=== PATIENT | male | born 1950 | race Caucasian/White ===

== ENCOUNTER 2021-10-14 16:30 | Emergency (ER) | payer MEDICARE, SELFPAY ==
--- NOTE | ~2021-10-14 | XR_ITS ---
EXAMINATION: XR shoulder LT min 2V INDICATION: Left shoulder pain TECHNIQUE: Four views of the left shoulder are submitted. COMPARISON: None FINDINGS: Normal alignment. No fracture. There is mild osteoarthritis of the acromioclavicular and gl enohumeral joints. Soft tissues are unremarkable. IMPRESSION: 1. Osteoarthritis without acute osseous abnormality. Reviewed, dictated and finalized at location F. [employer] OFFICER
--- NOTE | ~2021-10-14 | XR_ITS ---
EXAMINATION: [id number] INDICATION: Left chest pain after fall TECHNIQUE: A frontal view of the chest and 3 views of the left ribs were obtained. COMPARISON: None. FINDINGS: There are acute fractures of the anterolateral left ninth and 10th ribs. The lungs are free of acute opacities. There is no pleural effusion or pneumothorax. An electronic device projects over the right hemithorax with an electronic lead coursing superiorly on the superior margin of the radio graph. IMPRESSION: 1. Acute fractures of the anterolateral left ninth and 10th ribs. Reviewed, dictated and finalized at location F. [employer] MAGISTRATE
--- NOTE | 2021-10-14 17:03 | ED.GENADULT ---
HPI - General Adult General Chief complaint: Extremity Injury, Upper Stated complaint: Lt side pain due to fall Time Seen by Provider: 10/14/21 17:03 Source: patient, RN notes reviewed and old records reviewed Mode of arrival: ambulatory Limitations: no limitations History of Present Illness HPI narrative: 71 year old male who presents to express care with complaints of injury to his left side after fall today when he stepped up to the curb today going to the movies this afternoon in [place], [place]. Patient states that he has discomfort to his left shoulder and also to his left anterior lateral rib area from the fall. Patient also has a small skin tear to his left elbow with band-aide in place, no drainage present. Patient reports that he did not hit his head when he fell and denies any lose of consciousness. Related Data Home Medications Medication Instructions Recorded Confirmed allopurinol 100 mg PO DAILY 10/14/21 10/14/21 baclofen 10 mg PO PRN PRN 10/14/21 10/14/21 blood sugar diagnostic [Accu-Chek 10/14/21 10/14/21 Guide test strips] blood sugar diagnostic [Accu-Chek 10/14/21 10/14/21 Guide test strips] brimonidine 1 drp LEFT EYE TID 10/14/21 10/14/21 diltiazem HCl 300 mg PO DAILY 10/14/21 10/14/21 fenofibrate nanocrystallized 145 mg PO DAILY 10/14/21 10/14/21 insulin syringe-needle U-100 [BD 10/14/21 10/14/21 Insulin Syringe Ultra-Fine] latanoprost 2 drp EACH EYE DAILY 10/14/21 10/14/21 omeprazole 40 mg PO DAILY 10/14/21 10/14/21 oxybutynin chloride 15 mg PO DAILY 10/14/21 10/14/21 tamsulosin 0.4 mg PO DAILY 10/14/21 10/14/21 timolol maleate 1 drp EACH EYE DAILY 10/14/21 10/14/21 torsemide 10 mg PO DAILY 10/14/21 10/14/21 valsartan 160 mg PO DAILY 10/14/21 10/14/21 Allergies Allergy/AdvReac Type Severity Reaction Status Date / Time No Known Allergies Allergy Verified 10/14/21 16:46 Review of Systems Review of Systems: CONSTITUTIONAL: Denies fever, chills, or sweats. EYES: Denies visual changes, redness, or discharge. ENT: Denies rhinorrhea, congestion, sore throat, or otalgia. CARDIOVASCULAR: Denies chest pain, palpitations, or edema. RESPIRATORY: Denies cough or dyspnea.positive pain to left anterior lateral chest GASTROINTESTINAL: Denies abdominal pain, nausea, vomiting, or diarrhea. GENITOURINARY: Denies dysuria or hematuria. SKIN: Denies rash or itching. MUSCULOSKELETAL: Chronic back pain , Positive left shoulder joint pain, or myalgia. NEUROLOGIC: Denies headache, numbness, or weakness. PSYCHIATRIC: Denies anxiety or depression. All systems reviewed & are unremarkable except as noted in HPI and below PMFSH Past Medical History Medical History (Updated 10/14/21 @ 18:22 by Diamond Figueroa NP) Diabetes Elevated uric acid in blood GERD (gastroesophageal reflux disease) Glaucoma Kidney stones Stage 3 chronic kidney disease Surgical History Surgical History (Updated 10/14/21 @ 18:23 by Diamond Figueroa NP) H/O eye surgery left eye had glaucoma valve History of Shakeel fundoplication History of prostate surgery History of total right knee replacement Hx of cholecystectomy S/P right rotator cuff repair Social History Social History (Updated 10/14/21 @ 18:24 by Diamond Figueroa NP) Smoking status: Former smoker Alcohol intake: current Alcohol use details: rare social Substance use: never Living arrangements: with family Gender identity (if verbalized by the patient): Male Comments At time of signature, agree with nursing past medical, surgical, social and family history. There is no relevant family history pertinent to the presenting complaint Exam Narrative: GENERAL: Well-appearing, well-nourished, and in no acute distress. HEAD: Normocephalic, atraumatic. EYES: PERRLA and EOMI. ENT: Nares clear, no rhinorrhea or epistaxis. Mucous membranes moist.TM's normal with good light reflex, throat pink with no lesions or exudates no tonsil swelling NECK: Supple. n
[2021-10-14 17:08] VITALS: BP 125/89; PULSE 72; RESP 18; TEMP 37.2; O2SAT 96
== END 2021-10-14 18:08 | disposition home or self-care (01) ==
PROVIDERS: Emergency Provider Registered Nurse; PCP Registered Nurse
DX: M25.512 Pain in left shoulder (principal); S22.42XA Multiple fractures of ribs, left side, initial encounter for closed fracture; W19.XXXA Unspecified fall, initial encounter; K21.9 Gastro-esophageal reflux disease without esophagitis; H40.9 Unspecified glaucoma; E11.22 Type 2 diabetes mellitus with diabetic chronic kidney disease; N18.30 Chronic kidney disease, stage 3 unspecified; Z96.651 Presence of right artificial knee joint
CPT/HCPCS: 71101; 73030; 99214; G0463

== ENCOUNTER 2021-11-12 07:44 | Outpatient (RCR) | payer MEDICARE, SELFPAY ==
--- NOTE | 2021-11-12 07:52 | PTOPEVAL ---
Thank you for referring Onel Desouza to [facility].? The patient is scheduled to be seen for therapy? ____x/week for ___ weeks. Please review, sign, date and return this plan of care JARRETT. I agree with and certify that the following plan of care is medically necessary. Referring Physician Date Admitting Provider: Attending Provider: KYLIE ABAD Referring Provider: *PT Outpatient Evaluation Start: 11/12/21 07:07 Freq: Status: Active Protocol: Document 11/12/21 07:05 [facility] (Rec: 11/12/21 07:51 [facility] [id number]) Therapy Assessment Status Assessment Status Assessment Status Evaluation Outpatient Past Medical History Neurological History Hx Neurological Disorders No Significant History Cardiovascular History Hx Hypercholesterolemia Yes Respiratory History Hx Bronchitis Yes Hx Sleep Apnea Yes: has 'inspire' implant Gastrointestinal History Hx Cholecystectomy Yes Hx Esophageal Disorders Yes: barretts esophagus, had jesus surgery Hx Gastroesophageal Reflux Disease Yes Hx Hernia Yes Genitourinary History Hx Benign Prostatic Hyperplasia Yes Hx Renal Disease Yes: stage 3 Musculoskeletal History Hx Arthritis Yes Hx Fractures Yes: broken ribs, r arm broken twice Hx Gout Yes Hx Joint Replacement Yes: right knee Hx Orthopedic Surgery Yes: r rot cuff Hx Other Musculoskeletal Disorders Yes: bilateral carpal tunnel Hematological History Hx Hematological Disorders No Significant History Endocrine History Hx Diabetes Yes HEENT History Hx Glaucoma Yes: left eye surgery Hx Sinus Problems Yes Integumentary History Hx Other Skin Disorders Yes: melanoma right upper arm Reproductive History Hx Reproductive Disorders No Significant History Psychosocial History Hx Psychiatric Disorders No Significant History Pain History History of Any Previous or Ongoing No Significant History Instance of Pain Anesthesia History Hx Anesthesia Reactions No Significant History Evaluation Information Problem Diagnosis L shoulder RTC injury Onset 10/14/21 Additional Evaluation Detail quick dash = Subjective Information patient reports he injured the Query Text:As Reported By Patient/ L shoulder and some ribs when Family he fell on the L shoulder. he reports he has had xrays only as of this date. he reports he has a spire in the chest and cant do and MRI. he
--- NOTE | 2021-12-17 07:59 | PTOPEVAL ---
Thank you for referring Onel Desouza to [facility].? The patient is scheduled to be seen for therapy? __1__x/week for 2 visits. Please review, sign, date and return this plan of care JARRETT. I agree with and certify that the following plan of care is medically necessary. Referring Physician Date Admitting Provider: Attending Provider: KYLIE ABAD Referring Provider: *PT Outpatient Evaluation Start: 11/12/21 07:07 Freq: Status: Active Protocol: Document 12/17/21 07:10 [facility] (Rec: 12/17/21 07:52 [id number]) Therapy Assessment Status Assessment Status Assessment Status Progress Outpatient Past Medical History Neurological History Hx Neurological Disorders No Significant History Cardiovascular History Hx Hypercholesterolemia Yes Respiratory History Hx Bronchitis Yes Hx Sleep Apnea Yes: has 'inspire' implant Gastrointestinal History Hx Cholecystectomy Yes Hx Esophageal Disorders Yes: barretts esophagus, had jesus surgery Hx Gastroesophageal Reflux Disease Yes Hx Hernia Yes Genitourinary History Hx Benign Prostatic Hyperplasia Yes Hx Renal Disease Yes: stage 3 Musculoskeletal History Hx Arthritis Yes Hx Fractures Yes: broken ribs, r arm broken twice Hx Gout Yes Hx Joint Replacement Yes: right knee Hx Orthopedic Surgery Yes: r rot cuff Hx Other Musculoskeletal Disorders Yes: bilateral carpal tunnel Hematological History Hx Hematological Disorders No Significant History Endocrine History Hx Diabetes Yes HEENT History Hx Glaucoma Yes: left eye surgery Hx Sinus Problems Yes Integumentary History Hx Other Skin Disorders Yes: melanoma right upper arm Reproductive History Hx Reproductive Disorders No Significant History Psychosocial History Hx Psychiatric Disorders No Significant History Pain History History of Any Previous or Ongoing No Significant History Instance of Pain Anesthesia History Hx Anesthesia Reactions No Significant History Evaluation Information Problem Diagnosis left shoulder RTC injury Onset 10/14/21 Subjective Information Pt. reports that his pain is Query Text:As Reported By Patient/ less intense. He states that Family he notices improved strength. He reports that he still has complication lifting small objects away from his body. He is pleased with his progress so far.
--- NOTE | 2021-12-26 08:10 | PTOPEVAL ---
Thank you for referring Onel Desouza to [facility].? The patient is scheduled to be seen for therapy? ____x/week for ___ weeks. Please review, sign, date and return this plan of care JARRETT. I agree with and certify that the following plan of care is medically necessary. Referring Physician Date Admitting Provider: Attending Provider: KYLIE ABAD Referring Provider: DennisePT Outpatient Evaluation Start: 11/12/21 07:07 Freq: Status: Active Protocol: Document 12/26/21 07:00 [facility] (Rec: 12/26/21 08:09 [facility] [id number]) Therapy Assessment Status Assessment Status Assessment Status Discharge Outpatient Past Medical History Neurological History Hx Neurological Disorders No Significant History Cardiovascular History Hx Hypercholesterolemia Yes Respiratory History Hx Bronchitis Yes Hx Sleep Apnea Yes: has 'inspire' implant Gastrointestinal History Hx Cholecystectomy Yes Hx Esophageal Disorders Yes: barretts esophagus, had jesus surgery Hx Gastroesophageal Reflux Disease Yes Hx Hernia Yes Genitourinary History Hx Benign Prostatic Hyperplasia Yes Hx Renal Disease Yes: stage 3 Musculoskeletal History Hx Arthritis Yes Hx Fractures Yes: broken ribs, r arm broken twice Hx Gout Yes Hx Joint Replacement Yes: right knee Hx Orthopedic Surgery Yes: r rot cuff Hx Other Musculoskeletal Disorders Yes: bilateral carpal tunnel Hematological History Hx Hematological Disorders No Significant History Endocrine History Hx Diabetes Yes HEENT History Hx Glaucoma Yes: left eye surgery Hx Sinus Problems Yes Integumentary History Hx Other Skin Disorders Yes: melanoma right upper arm Reproductive History Hx Reproductive Disorders No Significant History Psychosocial History Hx Psychiatric Disorders No Significant History Pain History History of Any Previous or Ongoing No Significant History Instance of Pain Anesthesia History Hx Anesthesia Reactions No Significant History Evaluation Information Problem Diagnosis left shoulder RTC injury Onset 10/14/21 Additional Evaluation Detail quick dash = 15% Subjective Information patient reports he is doing Query Text:As Reported By Patient/ well. he reports he is not Family resticted from activities at home any longer. he reports he still has pain when sleeping, but reports this is in bilateral shoulders. he
== END 2021-12-26 09:46 | disposition home or self-care (01) ==
LOC: CHSPT 07:44
DX: M25.512 Pain in left shoulder (principal)
CPT/HCPCS: 97110; 97161; 97530

== ENCOUNTER 2023-01-28 08:17 | Emergency (ER) | payer OTHER, SELFPAY ==
[2023-01-28 08:17] VITALS: BP 145/88; PULSE 80; RESP 18; TEMP 36.7; O2SAT 95
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
[2023-01-28] MEDS: ACETAMINOPHEN 500 MG TABLET 1000 MG PO (09:06)
[2023-01-28] MEDS: CYCLOBENZAPRINE HCL 10 MG TABLET PO (09:07)
[2023-01-28] MEDS: traMADol HCL (*CRX) 50 MG TABLET PO (09:07)
== END 2023-01-28 09:12 | disposition home or self-care (01) ==
PROVIDERS: Emergency Provider Emergency Medicine
DX: M54.2 Cervicalgia (principal); M25.511 Pain in right shoulder; E11.22 Type 2 diabetes mellitus with diabetic chronic kidney disease; N18.4 Chronic kidney disease, stage 4 (severe); Z79.4 Long term (current) use of insulin; Z87.891 Personal history of nicotine dependence; V49.40XA Driver injured in collision with unspecified motor vehicles in traffic accident, initial encounter
CPT/HCPCS: 99283; A9270

== ENCOUNTER 2023-02-09 10:36 | Outpatient (RCR) | payer MEDICARE, SELFPAY ==
--- NOTE | 2023-02-09 12:01 | PTOPEVAL1 ---
Assessment and note entered by JT File, PT Evaluation Information Assessment Status Evaluation Diagnosis L shoulder pain Onset 02/02/23 Subjective Information patient reports an injury to the R shoulder when lifting a trash bag and trying to flip it up and over into the trash can. he describes a motion of flexion and er of the forearm and shoulder. he reports any similar motion now is painful. 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 he reports he also has pain lifting up overhead. he reports twisting motions are worse then just lifting. he reports he has had an xray. her eports the MD thinks he may have had a slight tear. he reports he would like to get back to more easily using the arm for lifting, carrying, cooking, and reaching. Reported Pain Level Pain Score 0: Self Report Assessment PT Clinical Summary mr. peraza is a 73 yo man who presents to skilled PT services for evaluation and treatment of R shoulder pain. he presents with signs and symptoms of R RTC arthropathy. he displays shoulder weakness, decreased rom, and pain. he is also limited in functional movement and ability to complete lifting, carrying, and self care activities. he would benefit from continued skilled PT to address his objective/functional deficits and progress towards a return to his prior level funcitonal activity performance/ quality of life. Plan of Care Interventions Electrical Stimulation,Hot Pack/Cold Pack,Manual Therapy,Neuro Re-education,Patient/Caregiver Educati,Therapeutic Activities,Therapeutic Exercise PT Services Indicated Yes Treatment Frequency and 2x weekly for 12 visits Duration These treatments will address the objective and functional deficits as defined above. The patient will be advanced safely and appropriately in order for the patient to progress towards his/her prior level of function. Additional exercises will be introduced and as well as a comprehensive home exercise program upon discharge, if needed, ?to ensure carryover of functional gains achieved in the clinic. This treatment plan has been reviewed and agreement upon by the patient.
--- NOTE | 2023-02-09 12:02 | OPREHPOC ---
Outpatient Therapy Plan of Care This is a Multidisciplinary Plan of Care that may contain components documented by all disciplines (PT, OT, and ST.) PT Problem 1 PT Problem #1 Knowledge Deficit PT Goal 1 Goal 1. independent and compliant with HEP to improve tolerance for continued skilled PT and exercises. Target Visit 6 PT Problem 2 PT Problem #2 Pain PT Goal 1 Goal 1. decrease pain at worst to 4/10 in the R shoulder to improve quality of life and functional activity performance. Target Visit 12 PT Problem 3 PT Problem #3 Impaired Range of Motion PT Goal 1 Goal 1. arom R shoulder flexion to 135 degrees or better 2. arom R shoulder IR to 60 degrees or better Target Visit 12 PT Problem 4 PT Problem #4 Impaired Strength PT Goal 1 Goal 1. improve R shoulder strength to 4/5 or better overall to improve functional lifting and carrying performance Target Visit 12 PT Problem 5 PT Problem #5 Impaired Functional Mobil PT Goal 1 Goal 1. quick dash to display less than 30% functional deficits 2. patient to lift and carry 10lb weight in R hand for 200ft 3. patient to return to cooking, cleaning, and self care activities without increased pain for 2 hours. Target Visit 12
--- NOTE | 2023-03-16 09:53 | OPREHPOC ---
Outpatient Therapy Plan of Care This is a Multidisciplinary Plan of Care that may contain components documented by all disciplines (PT, OT, and ST.) PT Problem 1 PT Problem #1 Knowledge Deficit PT Goal 1 Goal 1. independent and compliant with HEP to improve tolerance for continued skilled PT and exercises. Target Visit 6 Progress Met PT Problem 2 PT Problem #2 Pain PT Goal 1 Goal 1. decrease pain at worst to 4/10 in the R shoulder to improve quality of life and functional activity performance. Target Visit 12 Comment continue PT Problem 3 PT Problem #3 Impaired Range of Motion PT Goal 1 Goal 1. arom R shoulder flexion to 135 degrees or better 2. arom R shoulder IR to 60 degrees or better Target Visit 12 Comment continue PT Problem 4 PT Problem #4 Impaired Strength PT Goal 1 Goal 1. improve R shoulder strength to 4/5 or better overall to improve functional lifting and carrying performance Target Visit 12 Comment continue PT Problem 5 PT Problem #5 Impaired Functional Mobil PT Goal 1 Goal 1. quick dash to display less than 30% functional deficits 2. patient to lift and carry 10lb weight in R hand for 200ft 3. patient to return to cooking, cleaning, and self care activities without increased pain for 2 hours. Target Visit 12 Comment continue
--- NOTE | 2023-03-16 09:53 | PTOPPROGNS ---
Assessment and note entered by Katelynn Bowen DPT Evaluation Information Assessment Status Progress Diagnosis L shoulder pain Onset 02/02/23 Subjective Information Patient reports that day after PT he can tell that pain is decreased. He reports improvement in activities that rotate the arm but reports continued difficulty with lifting over head. Assessment PT Clinical Summary Patient has been seen for 10 visits of skilled PT. Patient is progressing towards goals at this time but continues to demonstrate strength and ROM deficits of the R shoulder. Patient reports improved ability to rotate R UE with cooking and cleaning tasks but has difficulty with lifting. Patient would benefit from continued skilled PT to address remaining impairments and return to PLOF. Plan of Care Interventions Electrical Stimulation,Hot Pack/Cold Pack,Manual Therapy,Neuro Re-education,Patient/Caregiver Educati,Therapeutic Activities,Therapeutic Exercise PT Services Indicated Yes Treatment Frequency and continue with remaining 2 visits Duration These treatments will address the objective and functional deficits as defined above. The patient will be advanced safely and appropriately in order for the patient to progress towards his/her prior level of function. Additional exercises will be introduced and as well as a comprehensive home exercise program upon discharge, if needed, ?to ensure carryover of functional gains achieved in the clinic. This treatment plan has been reviewed and agreement upon by the patient.
--- NOTE | 2023-03-25 13:24 | PTOPREEVAL ---
Assessment and note entered by JT File, PT Evaluation Information Assessment Status Re-evaluation Diagnosis R shoulder pain Onset 02/02/23 Subjective Information Patient reports having no pain present at the beginning of today's session. He notes having little pain in the R shoulder since receiving a shot in it last week, prior to this his pain was reaching 6/10 at the worst. He states pain typically occurs while he is trying to sleep and that he has difficulty sidelying on shoulder. Patient notes he had difficulty the other day while stirring a pot during cooking. Patient notes he is visiting the spinal surgeon tomorrow to assess his neck pain. Reported Pain Level Pain Score 0: Self Report Assessment PT Clinical Summary Mr. Desouza has attended 12 sessions of skilled physical therapy to address R shoulder pain, making good progress towards goals. Patient demonstrated improved shoulder flexion AROM and PROM as well as R UE strength. Patient reports improved pain levels following steroid shot last week, however still has difficulty with activities like lifting items throughout home, cooking, and sleeping. He continues to show limitations in overall UE strength and ROM. Patient would benefit from continued skilled PT to address remaining impairments and return to PLOF. Plan of Care Interventions Manual Therapy,Neuro Re-education,Patient/ Caregiver Educati,Therapeutic Activities, Therapeutic Exercise PT Services Indicated Yes Treatment Frequency and continue 2x/week for additional 6 visits Duration These treatments will address the objective and functional deficits as defined above. The patient will be advanced safely and appropriately in order for the patient to progress towards his/her prior level of function. Additional exercises will be introduced and as well as a comprehensive home exercise program upon discharge, if needed, ?to ensure carryover of functional gains achieved in the clinic. This treatment plan has been reviewed and agreement upon by the patient.
--- NOTE | 2023-03-25 13:33 | OPREHPOC ---
Outpatient Therapy Plan of Care This is a Multidisciplinary Plan of Care that may contain components documented by all disciplines (PT, OT, and ST.) PT Problem 1 PT Problem #1 Knowledge Deficit PT Goal 1 Goal 1. independent and compliant with HEP to improve tolerance for continued skilled PT and exercises. Target Visit 6 Progress Met PT Problem 2 PT Problem #2 Pain PT Goal 1 Goal 1. decrease pain at worst to 4/10 in the R shoulder to improve quality of life and functional activity performance. Target Visit 12 Progress Partially Met Comment pain 6/10 at worst, continue goal PT Problem 3 PT Problem #3 Impaired Range of Motion PT Goal 1 Goal 1. arom R shoulder flexion to 135 degrees or better 2. arom R shoulder IR to 60 degrees or better Target Visit 12 Progress Partially Met Comment shoulder flexion ROM goal met, continue shoulder IR goal PT Problem 4 PT Problem #4 Impaired Strength PT Goal 1 Goal 1. improve R shoulder strength to 4/5 or better overall to improve functional lifting and carrying performance Target Visit 12 Progress Partially Met Comment continue PT Problem 5 PT Problem #5 Impaired Functional Mobil PT Goal 1 Goal 1. quick dash to display less than 30% functional deficits 2. patient to lift and carry 10lb weight in R hand for 200ft 3. patient to return to cooking, cleaning, and self care activities without increased pain for 2 hours. Target Visit 12 Progress Partially Met Comment goal 1 met, continue addressing others
--- NOTE | 2023-04-16 10:36 | OPREHPOC ---
Outpatient Therapy Plan of Care This is a Multidisciplinary Plan of Care that may contain components documented by all disciplines (PT, OT, and ST.) PT Problem 1 PT Problem #1 Knowledge Deficit PT Goal 1 Goal 1. independent and compliant with HEP to improve tolerance for continued skilled PT and exercises. Target Visit 6 Progress Met PT Problem 2 PT Problem #2 Pain PT Goal 1 Goal 1. decrease pain at worst to 4/10 in the R shoulder to improve quality of life and functional activity performance. Target Visit 12 Progress Met Comment pain 6/10 at worst, continue goal PT Problem 3 PT Problem #3 Impaired Range of Motion PT Goal 1 Goal 1. arom R shoulder flexion to 135 degrees or better 2. arom R shoulder IR to 60 degrees or better Target Visit 12 Progress Partially Met Comment shoulder flexion ROM goal met PT Problem 4 PT Problem #4 Impaired Strength PT Goal 1 Goal 1. improve R shoulder strength to 4/5 or better overall to improve functional lifting and carrying performance Target Visit 12 Progress Partially Met Comment goal met for all motions besides R shoulder ER PT Problem 5 PT Problem #5 Impaired Functional Mobil PT Goal 1 Goal 1. quick dash to display less than 30% functional deficits 2. patient to lift and carry 10lb weight in R hand for 200ft 3. patient to return to cooking, cleaning, and self care activities without increased pain for 2 hours. Target Visit 12 Progress Met Comment goal 1 met, continue addressing others
--- NOTE | 2023-04-16 10:36 | PTOPDC ---
Assessment and note entered by JT File, PT Evaluation Information Assessment Status Re-evaluation Diagnosis R shoulder pain Onset 02/02/23 Subjective Information Patient reports no pain in the R shoulder at the beginning of today's session. He does have pain in the lower back this morning, noting he slept on it wrong. He reports he is able to do most things with his arm, however he feels some pain with lifting weights. Patient notes improvements in range of motion and strength of the R shoulder since initiating PT. He states he no longer has issues sleeping with the shoulder. He feels comfortable continuing HEP independently. Reported Pain Level Pain Score 0,8: Self Report Assessment PT Clinical Summary Mr. Desouza has attended 18 sessions of skilled PT to address R shoulder pain. He has made good progress towards goals, meeting all goals besides R shoulder IR ROM and ER strength. Patient reports increased ability to perform daily actions such as cooking, reaching above head to reach objects, and sleeping at night. He currently has 11% functional decline as assessed by the Quick DASH, decreasing from 25% at last assessment. At this time, patient is to be discharged with independent HEP to maintain current level of function. Plan of Care PT Services Indicated Yes
== END 2023-04-16 10:06 | disposition home or self-care (01) ==
LOC: CHSPT 10:36
PROVIDERS: Visit Provider Orthopaedic Surgery Sports Medicine
DX: M25.511 Pain in right shoulder (principal)
CPT/HCPCS: 97110; 97112; 97140; 97150; 97161

== ENCOUNTER 2023-04-21 08:33 | Outpatient (RCR) | payer MEDICARE, SELFPAY ==
--- NOTE | 2023-04-22 08:03 | OPREHPOC ---
Outpatient Therapy Plan of Care This is a Multidisciplinary Plan of Care that may contain components documented by all disciplines (PT, OT, and ST.) PT Problem 1 PT Problem #1 Knowledge Deficit PT Goal 1 Goal 1. Patient to demonstrate independence with HEP to improve progress made in PT. Target Visit 4 PT Problem 2 PT Problem #2 Impaired Range of Motion PT Goal 1 Goal 1. Patient to improve L cervical rotation AROM to 32 degrees or more to improve ability to look over shoulder while driving. 2. Patient to improve cervical extension AROM to 13 degrees or more to improve ability to look overhead into kitchen cabinet while cooking. Target Visit 9 PT Problem 3 PT Problem #3 Impaired Strength PT Goal 1 Goal 1. Patient to achieve 4+/5 bilat UE strength to improve ability to lift a heavy pot while cooking. Target Visit 9 PT Problem 4 PT Problem #4 Pain PT Goal 1 Goal 1. Patient to report neck pain as 4/10 or less at worst during the night to improve sleep quality. Target Visit 9 PT Problem 5 PT Problem #5 Impaired Functional Mobil PT Goal 1 Goal 1. Patient to improve NDI score to 15% or less functional decline to improve his tolerance with functional activities in the home and community. 2. Patient to report sleeping through the night at least 50% of the time to improve his quality of life. Target Visit 9
--- NOTE | 2023-04-22 08:03 | PTOPEVAL1 ---
Assessment and note entered by JT File, PT Evaluation Information Assessment Status Evaluation Diagnosis neck pain Onset 03/26/23 Subjective Information Patient reports having neck pain present for about ten years, but has recently worsened. Patient reports pain with turning his neck side to side. He notes that throbbing pain in the neck wakes him up at night, disrupting his sleep. The pain typically takes about 30 minutes to lower to a tolerable level and return to bed. He notes no history of neck surgery. He has received x-rays on the cervical spine, showing arthritis. He notes he occasionally takes Tylenol for the pain as well as heat for tempory relief of pain. Patient reports having numbness and tingling in the R arm. He notes an inability to lift heavy weights and otherwise restricts his activity to keep from increasing pain. He has seen a chiropractor for the neck, but has not recieved long lasting relief . Reported Pain Level Pain Score 2: Self Report Assessment PT Clinical Summary Mr. Desouza is a 73 y/o male who presents to skilled PT for neck pain. He shows limitations in cervical ROM and UE strength, limiting his ability to perform activities during his daily life. He notes pain with cervical range of motion, as well as significant pain while sleeping at night. He currently has 32% functional decline as assessed by the NDI. Patient would benefit from continued skilled PT to address ROM, strength, and postural deficits to improve his ability to sleep, drive, and lift items throughout the day. Plan of Care Interventions Hot Pack/Cold Pack,Manual Therapy,Neuro Re- education,Patient/Caregiver Educati,Therapeutic Activities,Therapeutic Exercise PT Services Indicated Yes Treatment Frequency and 3x/week for 9 visits Duration These treatments will address the objective and functional deficits as defined above. The patient will be advanced safely and appropriately in order for the patient to progress towards his/her prior level of function. Additional exercises will be introduced and as well as a comprehensive home exercise program upon discharge, if needed, ?to ensure carryover of functional gains achieved in the clinic. This treatment plan has been reviewed and agreement upon by the patient.
--- NOTE | 2023-05-15 09:33 | OPREHPOC ---
Outpatient Therapy Plan of Care This is a Multidisciplinary Plan of Care that may contain components documented by all disciplines (PT, OT, and ST.) PT Problem 1 PT Problem #1 Knowledge Deficit PT Goal 1 Goal 1. Patient to demonstrate independence with HEP to improve progress made in PT. Target Visit 4 Progress Met PT Problem 2 PT Problem #2 Impaired Range of Motion PT Goal 1 Goal 1. Patient to improve L cervical rotation AROM to 32 degrees or more to improve ability to look over shoulder while driving. 2. Patient to improve cervical extension AROM to 13 degrees or more to improve ability to look overhead into kitchen cabinet while cooking. Target Visit 9 Progress Met PT Problem 3 PT Problem #3 Impaired Strength PT Goal 1 Goal 1. Patient to achieve 4+/5 bilat UE strength to improve ability to lift a heavy pot while cooking. Target Visit 9 Progress Partially Met Comment strength improved, goal not met PT Problem 4 PT Problem #4 Pain PT Goal 1 Goal 1. Patient to report neck pain as 4/10 or less at worst during the night to improve sleep quality. Target Visit 9 Progress Partially Met Comment patient reports decreased frequency of pain PT Problem 5 PT Problem #5 Impaired Functional Mobil PT Goal 1 Goal 1. Patient to improve NDI score to 15% or less functional decline to improve his tolerance with functional activities in the home and community. 2. Patient to report sleeping through the night at least 50% of the time to improve his quality of life. Target Visit 9 Progress Partially Met Comment NDI score improved, goal not yet met goal 2 met
--- NOTE | 2023-05-15 09:34 | PTOPDC ---
Assessment and note entered by JT File, PT Evaluation Information Assessment Status Re-evaluation Diagnosis neck pain Onset 03/26/23 Subjective Information Patient reports that his pain has decreased since starting PT, he also notes an increased ability to sleep through the night. He states every once in awhile the neck will still wake him up at night, saying the other night it reaches a 10/10. He notes as the day goes on the pain decreases, often reachng 0/10. Reported Pain Level Pain Score 1: Self Report Pain Score 1: Self Report Assessment PT Clinical Summary Mr. Desouza has attended 9 visits of skilled PT to address neck pain, making good progress towards goals. Patient met all cervical ROM goals, and reports decrease in frequency and intensity of neck pain improving his ability to perform household tasks and cooking. Patient demonstrated slightly improved UE strength this date, however continues to show limitations with this. Patient currently has 20% functional decline on the NDI, decreasing from 32% at initial assessment. At this time, patient is to be discharged from PT with independent HEP to maintain current level of function. Plan of Care PT Services Indicated No
== END 2023-05-15 16:37 | disposition home or self-care (01) ==
LOC: CHSPT 08:33
DX: M54.2 Cervicalgia (principal)
CPT/HCPCS: 97110; 97140; 97161

== ENCOUNTER 2025-05-24 08:00 | Outpatient (RCR) | payer MEDICARE, OTHER, SELFPAY ==
--- NOTE | 2025-05-03 11:01 | OPREHPOC ---
Outpatient Therapy Plan of Care This is a Multidisciplinary Plan of Care that may contain components documented by all disciplines (PT, OT, and ST.) PT Problem 1 PT Problem #1 Knowledge Deficit PT Goal 1 Goal / Goal Update independent and compliant with HEP Target Visit 6 PT Problem 2 PT Problem #2 Pain PT Goal 1 Goal / Goal Update decrease pain at worst to 5/10 or less in the cervical spine. Target Visit 12 PT Problem 3 PT Problem #3 Impaired Range of Motion PT Goal 1 Goal / Goal Update improve bilateral cervical side bending to 20 degrees or better improve bilateral cervical rotation to 50 degrees or better Target Visit 12 PT Problem 4 PT Problem #4 Impaired Strength PT Goal 1 Goal / Goal Update improve bilateral UE strength to 4/5 or better overall at the shoulders. Target Visit 12 PT Problem 5 PT Problem #5 Impaired Functional Mobility PT Goal 1 Goal / Goal Update ndi to display 20% or less functional deficits patient to sleep through the night 4 nights a weeks patient to sleep in bed the whole night. Target Visit 12
--- NOTE | 2025-05-03 11:01 | PTOPEVAL1 ---
Assessment and note entered by JT File, PT Evaluation Information Assessment Status Evaluation ICD-10 Condition Codes (PT) Cervicalgia M54.2 Onset 05/02/25 Subjective Information patient reports he is woken up in the middle of the night around 1-2am with severe pain in the neck. he reports he has to get up and sit in the recliner as sitting up helps reduce his pain. he reports he knows it is arthritis. he reports it is tolerable/moderate during the day. he reports he does not have any NTB in the arms. he reports he has been dealing with this issue for about 1 year. he reports he is unable to take any pain medications, and is limited to tylenol due to his kidney function. Reported Pain Level Pain Score 4: Self Report Assessment PT Clinical Summary mr. douglass is a pleasant 75 yo man who presents to skilled PT services for evaluation and treatment of cervical spine pain. he displays deficits in cervical rom, UE strength, and functional activity limitations including sleeping . his signs and symptoms are indicative of cervical OA. patient would benefit from continued skilled PT to address his objective/functional deficits and return to his prior level functional activity performance/quality of life. Plan of Care Interventions Electrical Stimulation,Hot Pack/Cold Pack,Manual Therapy,Mechanical Traction,Patient/Caregiver Education,Therapeutic Activities,Therapeutic Exercise PT Services Indicated Yes Treatment Frequency and 3x weekly for 12 visits Duration These treatments will address the objective and functional deficits as defined above. The patient will be advanced safely and appropriately in order for the patient to progress towards his/her prior level of function. Additional exercises will be introduced and as well as a comprehensive home exercise program upon discharge, if needed, ?to ensure carryover of functional gains achieved in the clinic. This treatment plan has been reviewed and agreement upon by the patient.
--- NOTE | 2025-05-26 08:57 | OPREHPOC ---
Outpatient Therapy Plan of Care This is a Multidisciplinary Plan of Care that may contain components documented by all disciplines (PT, OT, and ST.) PT Problem 1 PT Problem #1 Knowledge Deficit PT Goal 1 Goal / Goal Update independent and compliant with HEP Target Visit 6 Progress Met PT Problem 2 PT Problem #2 Pain PT Goal 1 Goal / Goal Update decrease pain at worst to 5/10 or less in the cervical spine. Target Visit 12 Progress Not Met PT Problem 3 PT Problem #3 Impaired Range of Motion PT Goal 1 Goal / Goal Update improve bilateral cervical side bending to 20 degrees or better -met improve bilateral cervical rotation to 50 degrees or better -partially met Target Visit 12 Progress Partially Met PT Problem 4 PT Problem #4 Impaired Strength PT Goal 1 Goal / Goal Update improve bilateral UE strength to 4/5 or better overall at the shoulders. -partially met Target Visit 12 Progress Partially Met PT Problem 5 PT Problem #5 Impaired Functional Mobility PT Goal 1 Goal / Goal Update ndi to display 20% or less functional deficits - not met patient to sleep through the night 4 nights a weeks -not met patient to sleep in bed the whole night. -not met Target Visit 12 Progress Not Met
--- NOTE | 2025-05-26 08:57 | PTOPPROG ---
Assessment and note entered by Eliz Williamson, PT Evaluation Information Assessment Status Progress ICD-10 Condition Codes (PT) Cervicalgia M54.2 Onset 05/02/25 Subjective Information Pt reports his neck pain isn't too bad today and that his back is actually hurting more than his neck. His pain continues to experience the most severe neck pain in the middle of the night where it gets so severe that it wakes him up. He states that he is awoken most nights depending on how much activity he gets during the day. He states he doesn't get woken up by his pain every night and he is able to sleep in his bed, but when he does get woken up he has to get up and put a hot pack on his neck and go sit in the recliner. Despite this he does feel like he's improved and his pain isn't as bad during the day. Assessment PT Clinical Summary Mr. Desouza has attended 10 skilled PT visits addressing neck pain. He has made progress in his resting pain levels, neck AROM and shoulder strength, however he has not fully met goals addressing these deficits. He continues to be most limited in active cervical rotation to the L and continues to experience sleep interference. Continued skilled PT intervention is indicated to make further progress toward goals and improve quality of life. Plan of Care Interventions Electrical Stimulation,Hot Pack/Cold Pack,Manual Therapy,Mechanical Traction,Patient/Caregiver Education,Therapeutic Activities,Therapeutic Exercise PT Services Indicated Yes Treatment Frequency and Continue per POC Duration These treatments will address the objective and functional deficits as defined above. The patient will be advanced safely and appropriately in order for the patient to progress towards his/her prior level of function. Additional exercises will be introduced and as well as a comprehensive home exercise program upon discharge, if needed, ?to ensure carryover of functional gains achieved in the clinic. This treatment plan has been reviewed and agreement upon by the patient.
--- NOTE | 2025-05-31 08:50 | OPREHPOC ---
Outpatient Therapy Plan of Care This is a Multidisciplinary Plan of Care that may contain components documented by all disciplines (PT, OT, and ST.) PT Problem 1 PT Problem #1 Knowledge Deficit PT Goal 1 Goal / Goal Update independent and compliant with HEP Target Visit 6 Progress Met PT Problem 2 PT Problem #2 Pain PT Goal 1 Goal / Goal Update decrease pain at worst to 5/10 or less in the cervical spine. Target Visit 12 Progress Not Met PT Problem 3 PT Problem #3 Impaired Range of Motion PT Goal 1 Goal / Goal Update improve bilateral cervical side bending to 20 degrees or better -met improve bilateral cervical rotation to 50 degrees or better -met Target Visit 12 Progress Met PT Problem 4 PT Problem #4 Impaired Strength PT Goal 1 Goal / Goal Update improve bilateral UE strength to 4/5 or better overall at the shoulders. -partially met Target Visit 12 Progress Partially Met PT Problem 5 PT Problem #5 Impaired Functional Mobility PT Goal 1 Goal / Goal Update ndi to display 20% or less functional deficits - not met patient to sleep through the night 4 nights a week -not met patient to sleep in bed the whole night. -met Target Visit 12 Progress Partially Met
--- NOTE | 2025-05-31 08:50 | PTOPPROG ---
Assessment and note entered by Eliz Williamson, PT Evaluation Information Assessment Status Progress ICD-10 Condition Codes (PT) Cervicalgia M54.2 Onset 05/02/25 Subjective Information Mr. Desouza reports his neck is feeling pretty good today. He has kept up with his exercises and he was able to sleep through the night in his bed last night instead of being awoken by pain. He feels like he has made some progress in therapy and feels like he can make more progress if he continues therapy. Assessment PT Clinical Summary Mr. Desouza has attended 12 skilled PT visits for neck pain. He has made progress in his cervical AROM and was also able to sleep through the night without being awoken by pain yesterday. He does still demonstrate UE weakness and requires continued skilled PT intervention to make further progress in this area as well as address postural deficits and flexibility to allow him to perform all daily tasks with less pain and sleep through the night more frequently. Plan of Care Interventions Electrical Stimulation,Hot Pack/Cold Pack,Manual Therapy,Mechanical Traction,Patient/Caregiver Education,Therapeutic Activities,Therapeutic Exercise PT Services Indicated Yes Treatment Frequency and 2x/week for 8 additional visits Duration These treatments will address the objective and functional deficits as defined above. The patient will be advanced safely and appropriately in order for the patient to progress towards his/her prior level of function. Additional exercises will be introduced and as well as a comprehensive home exercise program upon discharge, if needed, ?to ensure carryover of functional gains achieved in the clinic. This treatment plan has been reviewed and agreement upon by the patient.
== END 2025-08-01 23:59 | disposition home or self-care (01) ==
LOC: CHSPT 08:00
DX: M47.22 Other spondylosis with radiculopathy, cervical region (principal)
CPT/HCPCS: 97012; 97014; 97110; 97140; 97150; 97161; G0283